=== PATIENT | female | born 1980 | race Two or more races ===

== ENCOUNTER 2016-10-11 07:50 | Observation (INO) | payer OTHER ==
[2016-10-11] MEDS ORDERED: TERBUTALINE SULFATE 1 MG/ML VIAL IV ONE (07:57)
[2016-10-11 08:35] LABS: % IMMATURE GRANULYOCYTES 1.2 % (0.0-1.1); ABSOLUTE IMMATURE GRANULOCYTES 0.08 10^3/uL (0.00-0.10); ADD DIFF? NO; ADD MORPH? NO; ADD SCAN? NO; ATYPICAL LYMPHOCYTE FLAG 10 (0-99); FRAGMENT RBC FLAG 0 (0-99); HEMATOCRIT 38.5 % (38.0-47.0); HEMOGLOBIN 13.9 g/dL (12.6-16.3); LEFT SHIFT FLG 0 (0-99); LIPEMIA HEMOLYSIS FLAG 90 (0-99); MEAN CELL HEMOGLOBIN 33.4 pg (27.9-34.1); MEAN CELL HEMOGLOBIN CONCENTR. 36.1 g/dL (32.4-36.7); MEAN CELL VOLUME 92.5 fL (81.5-99.8); MEAN PLATELET VOLUME 10.6 fL (8.7-11.7); PLATELET CLUMPS FLAG 0 (0-99); PLATELET COUNT 184 10^3/uL (150-400); RED BLOOD CELL COUNT 4.16 10^6/uL (4.18-5.33)
[2016-10-11 09:31] VITALS: BP 129/80; PULSE 83
--- NOTE | 2016-10-11 09:40 | GHP ---
[f rep st] PREOP HISTORY AND PHYSICAL DATE OF ADMISSION: 10/11/2016 ADMISSION DIAGNOSES: 1. Intrauterine at 37-4/7 weeks' gestation. 2. Breech presentation. Patient presents for external cephalic version. INDICATIONS: Patient is a 36-year-old 4, para 3-0-0-3, whose baby is known to be in the sergio ch presentation. She has been doing acupuncture, chiropractic, moxibustion for the last few weeks an d baby is still in a breech presentation. Options were reviewed with the patient. The external ceph alic version versus expectant management and section at 39 weeks. The patient is electing t o proceed with an external cephalic version. Risks and benefits of this have been extensively review ed with the patient including risks of bleeding, rupture of membranes, distress, and need for a n emergency section. The patient has been properly consented. MEDICAL HISTORY: She has exercise-induced asthma. She has GERD, history of depression in college. S he was on medication for a year, but did not have any issues with her mood. Has breast fi broadenoma, and history of pyelonephritis. MEDICATIONS: vitamins and DHA. SURGICAL HISTORY: [place] tooth extraction, breast biopsy. ALLERGIES: No known drug allergies. SOCIAL HISTORY: Patient is . She is a professor. She lives with her and her 3 other children. FAMILY MEDICAL HISTORY: Noncontributory. WORKGROUP LEADER HISTORY: Menarche age 10. Periods every 28 days, lasting 7 days. She is a 4, para 3 -0-0-3. In 08/2008 she had a spontaneous vaginal delivery after 4-1/2 hours of labor at 39 weeks of a 7 pounds 14 ounce male infant. In 01/2011 she had a spontaneous vaginal delivery after 5 hours of labor at 41 weeks of a 7 pounds 11 ounce male . In 08/2013 she had a spontaneous vaginal deliv matt of a 7 pounds 15 ounce female at 40 weeks' gestation. That labor was precipitous. Curren t has been uncomplicated with exception of the breech presentation. The patient denies any history of any abnormal Pap smears or sexually transmitted diseases. PHYSICAL EXAM: VITAL SIGNS: Stable. GENERAL APPEARANCE: Alert and oriented x3. Her heart rate is regular. LUNGS: Clear to auscultation bilaterally. ABDOMEN: Gravid with the 's vertex in th e upper abdomen. It is nontender. EXTREMITIES: Reveal no calf tenderness or edema. RECTAL: The p atient does have a hemorrhoid which started bleeding yesterday. It is thrombosed and it is not overl y painful. CERVICAL EXAM: Deferred. heart tracing is category 1. LABS: Blood type B positive, antibody screen negative. Rubella immune. GBS is negative. HBsAg negative. HIV negative. Her 50 g glucose was 57. ASSESSMENT AND PLAN: A 36-year-old 4, para 3-0-0-3, at 37-4/7 weeks' gestation with an infan t in the breech presentation. Amniotic fluid maximum vertical pocket was 3.4 cm. The placenta is on the patient's right lateral side. We had a long discussion about management options. The patient i s electing to proceed with external cephalic version. Risks and benefits have been extensively revie wed with the patient as well as discharge precautions if version works and does not work. Questions were answered. /[id number]/MODL
--- NOTE | 2016-10-17 17:33 | GPN ---
[f rep st] PROCEDURE NOTE DATE OF PROCEDURE: 10/11/2016 PROCEDURE: Attempted external cephalic version. ANESTHESIA: None. PROVIDERS: Mabel Brown and Davida Strong. INDICATION: Patient is a 36-year-old, 4, para 3-0-0-3, who presented at 37-4/7 weeks' gestat ion with baby known to be in the breech presentation. DESCRIPTION OF PROCEDURE: Patient was brought. She had an IV started. We attempted an external cep halic version without terbutaline per the patient's request and then later on with terbutaline. Feta l status was category 1 tracing prior to the procedure. A bedside ultrasound confirmed baby to be in the breech presentation with adequate amniotic fluid. We attempted multiple forward and backward ro lls with the head rotating from right to left side, but no successful complete version was able to be completed. The baby was monitored intermittently throughout the procedure and for an hour after the procedure. status remained reassuring. Patient was discharged to home. She was given labor precautions and kick counts, and instructed to f ollow up next week in the office and let us know as soon as possible if she proceeds into labor due t o her history of rapid labor. She is aware that she will need to have a section at 39 weeks if she has not delivered before then. We discussed the risk of a vaginal breech delivery. She will present to the office next week for amniotic fluid index checks. /[id number]/MODL
--- NOTE | 2016-11-07 11:56 | GHP ---
DATE OF ADMISSION: 10/11/2016 HISTORY AND PHYSICAL EXAMINATION/DISCHARGE ORDER. The patient was admitted on October 11. Admission for external cephalic version. Let this also serve as a discharge order on October 11. /[id number]/MODL
== END 2016-10-11 11:15 | disposition home or self-care (01) ==
LOC: FLD 07:50
PROVIDERS: ADMIT Obstetrics & Gynecology; ATTEND Obstetrics & Gynecology
DX: O32.1XX1 Maternal care for breech presentation, fetus 1 (principal)
CPT/HCPCS: J3105

== ENCOUNTER 2016-10-21 03:01 | Inpatient (IN) | payer OTHER ==
[2016-10-21] MEDS ORDERED: ceFAZolin 2 GM/DEXTROSE 100 ML IV ONE (03:05)
[2016-10-21] MEDS ORDERED: LR 500 ML IV ONE (03:05)
[2016-10-21] MEDS ORDERED: AMMONIA AROMATIC 1 EACH AMP IH ONE (03:15)
[2016-10-21] MEDS ORDERED: OXYTOCIN 10 UNIT/ML VIAL ONE (03:16)
[2016-10-21] MEDS ORDERED: MISOPROSTOL 200 MCG TAB ONE (03:16)
[2016-10-21] MEDS ORDERED: TERBUTALINE SULFATE 1 MG/ML VIAL ONE (03:16)
[2016-10-21 03:28] LABS: % IMMATURE GRANULYOCYTES 0.8 % (0.0-1.1); ABSOLUTE IMMATURE GRANULOCYTES 0.06 10^3/uL (0.00-0.10); ADD DIFF? NO; ADD MORPH? NO; ADD SCAN? NO; ATYPICAL LYMPHOCYTE FLAG 10 (0-99); FRAGMENT RBC FLAG 0 (0-99); HEMATOCRIT 43.1 % (38.0-47.0); HEMOGLOBIN 14.8 g/dL (12.6-16.3); LEFT SHIFT FLG 0 (0-99); LIPEMIA HEMOLYSIS FLAG 90 (0-99); MEAN CELL HEMOGLOBIN 32.7 pg (27.9-34.1); MEAN CELL HEMOGLOBIN CONCENTR. 34.3 g/dL (32.4-36.7); MEAN CELL VOLUME 95.4 fL (81.5-99.8); MEAN PLATELET VOLUME 10.8 fL (8.7-11.7); PLATELET CLUMPS FLAG 0 (0-99); PLATELET COUNT 197 10^3/uL (150-400); RED BLOOD CELL COUNT 4.52 10^6/uL (4.18-5.33); RED CELL DISTRIBUTION WIDTH 12.7 % (11.5-15.2)
[2016-10-21] MEDS ORDERED: LR 1,000 ML IV SCH (03:30)
[2016-10-21] MEDS ORDERED: CITRIC ACID/SODIUM CITRATE 30 ML UDCUP ONE (03:30)
[2016-10-21] MEDS: CITRIC ACID/SODIUM CITRATE 30 ML UDCUP PO SCH ×2 (03:57→12:38)
[2016-10-21] MEDS ORDERED: FAMOTIDINE 20 MG/NACL/50 ML BAG IV ONE (04:08)
[2016-10-21] MEDS ORDERED: PHENYLEPHRINE HCL 100 MCG/ML SYR ONE ×2 (04:12→05:28)
[2016-10-21] MEDS ORDERED: fentaNYL 100 MCG/2 ML INJ ONE (04:13)
[2016-10-21] MEDS ORDERED: morphINE PF 5 MG/10 ML INJ ONE (04:13)
--- NOTE | 2016-10-21 04:20 | GHP ---
[f rep st] PREOP HISTORY AND PHYSICAL DATE OF ADMISSION: 10/21/2016 ADDENDUM TO HISTORY OF PRESENT ILLNESS: This is an interim H and P from the previous H and P dictate d on 10/11/2016. In review, the patient is a 36-year-old, , with the baby at 39 weeks' gestatio n with a known breech presentation that was confirmed again this morning by ultrasound. The patient had a failed attempt at external version on October 11. The patient had spontaneous rupture of membr anes this morning at 2:30 a.m. with clear fluid. The patient presented to the hospital quickly there after as the patient has a history of rapid deliveries. The patient is being prepared now for surger y. Risks and benefits of the section have been discussed with the patient and the consent f orm signed. The patient was offered a tubal ligation and does not want to proceed with that as they are not totally sure about their family size. For additional history, see the previous dictated H an d P. SIGNIFICANT MEDICAL HISTORY: Only mild asthma with a history of depression in college but no postpar helio depression. PAST SURGICAL HISTORY: The patient has no significant past surgical history. CURRENT MEDICATIONS: Only vitamins and DHA. ALLERGIES: No known drug allergies. PHYSICAL EXAMINATION: GENERAL: Upon admission, the patient is a well developed, well nourished [place] female, in no distress. The patient is aware of contractions with increasing intensity. VITAL SIGNS: Normal and the patient is afebrile. See nursing notes for full documentation. heart tones show a category 1 tracing with baseline in the 130s with good variability and accelerati ons. No decelerations noted. Contractions now occurring every 3-5 minutes. PELVIC: Other than noti ng abundant clear fluid vaginally, a vaginal exam was not performed. EXTREMITIES: Nontender. ASSESSMENT: Intrauterine at 39 weeks' gestation with spontaneous rupture of membranes and the baby in a persistent breech presentation. Maternal blood type B positive with rubella immune, an d beta strep culture negative. PLAN: We will proceed with section for delivery. The patient declines tubal ligation. Con sent form is signed. The patient received preoperative antibiotics and will have on SCDs for DVT pro phylaxis during surgery. /[id number]/MODL
[2016-10-21] MEDS ORDERED: ONDANSETRON 4 MG/2 ML VIAL ONE (05:00)
[2016-10-21] MEDS ORDERED: LIDOCAINE 1% 30 ML SDV SC PRN (05:36)
[2016-10-21] MEDS ORDERED: EPSOM SALT 454 GM TP PRN (05:36)
[2016-10-21] MEDS ORDERED: TERBUTALINE SULFATE 1 MG/ML VIAL IV PRN (05:36)
[2016-10-21] MEDS ORDERED: OXYTOCIN/RINGERS LACTATE 1,000 ML IV PRN (05:36)
[2016-10-21] MEDS ORDERED: MINERAL OIL 60 ML OIL TP PRN (05:36)
[2016-10-21] MEDS ORDERED: LR 1,000 ML IV PRN (05:36)
[2016-10-21] MEDS ORDERED: HYDROCODONE/APAP 5/325 TAB PO PRN (05:52)
[2016-10-21] MEDS ORDERED: SIMETHICONE 80 MG TAB CHEW PO PRN (05:52)
[2016-10-21] MEDS ORDERED: ACETAMINOPHEN 325 MG TAB PO PRN (05:52)
[2016-10-21] MEDS ORDERED: POLYETHYLENE GLYCOL 3350 17 GM PKT PO PRN (05:53)
[2016-10-21] MEDS ORDERED: BISACODYL 10 MG SUPP PR PRN (05:53)
[2016-10-21] MEDS ORDERED: MAGNESIUM HYDROXIDE 30 ML UDCUP PO PRN (05:53)
[2016-10-21] MEDS ORDERED: LACTULOSE 20 GM/30 ML UDCUP PO PRN (05:53)
[2016-10-21] MEDS ORDERED: OXYCODONE/APAP 5/325 TAB PO PRN (05:57)
[2016-10-21] MEDS ORDERED: fentaNYL 100 MCG/2 ML INJ IVP PRN (05:57)
[2016-10-21] MEDS ORDERED: MEPERIDINE 25 MG/ML SYR IVP PRN (05:57)
[2016-10-21] MEDS ORDERED: PHENYLEPHRINE HCL 100 MCG/ML SYR IVP PRN (05:57)
[2016-10-21] MEDS ORDERED: HYDROmorphONE/DILAUDID 1 MG/ML SYR IVP PRN (05:57)
[2016-10-21] MEDS ORDERED: LABETALOL HCL 5 MG/ML 20 ML MDV IVP PRN (05:57)
[2016-10-21] MEDS ORDERED: NALOXONE HCL 0.4 MG/ML INJ IVP PRN (05:57)
--- NOTE | 2016-10-21 05:58 | OBPROC ---
- Delivery Pre-op Diagnoses: IUP at 39 wks, breech, SROM Post-op Diagnoses: same, delivered Procedure: Primary, Low Transverse Surgeon: Jenna Saucedo Doctor Of Dental Medicine: Harriet Herrera () Anesthesiologist: Uziel Angeles Fountain Brush Assembler/RIGGER SUPERVISOR: Mia Louie (RIGGER SUPERVISOR) Anesthesia: Spinal (with duramorph) Complications: Other (Specify) (breech presentation) Findings: normal uterus, tubes and ovaries. normal umb cord, clear fluid. vigorous at . heavier bleeding from right angle of incision but double layer closure and hemostatic IV Fluid (ml): 1,900 EBL: 1000 - [place] Info A Delivery Date: 10/21/16 Delivery Time: 04:53 Sex of : Female Score (1 Min): 8 Score (5 Min): 9
[2016-10-21] MEDS: KETOROLAC 30 MG/1 ML SDV IVP SCH ×2 (12:02→20:11)
--- NOTE | 2016-10-21 12:07 | SOAPPROG ---
SOAP Progress Note Assessment/Plan: Assessment: scant rubra lochia well pain well managed incision covered clean and dry travis in place peeing QS 0 BS eating regular food doing well denies difficulties discussed pain relief moving changing positions taking torodol to assist with pain relief \ Plan:day of surgery 10/21/16 12:05 Subjective: doing well denies pain. Objective: Vital Signs Temp Pulse Resp BP Pulse Ox 36.6 C 65 16 101/63 95 10/21/16 11:00 10/21/16 11:00 10/21/16 11:00 10/21/16 11:00 10/21/16 11:00 Laboratory Results 10/21/16 03:20 - Time Spent With Patient Time Spent With Patient: 15 minutes ICD10 Worksheet Patient Problems: Problems Problem Status Diagnosed Breech presentation Acute delivery delivered Acute
[2016-10-21] MEDS: SENNOSIDES/DOCUSATE SODIUM TAB PO SCH (12:22)
[2016-10-22] MEDS: SENNOSIDES/DOCUSATE SODIUM TAB PO SCH ×3 (02:24→21:09)
[2016-10-22] MEDS: KETOROLAC 30 MG/1 ML SDV IVP SCH ×2 (02:25→02:48)
[2016-10-22] MEDS ORDERED: KETOROLAC 30 MG/1 ML SDV IVP ONE (02:30)
--- NOTE | 2016-10-22 08:03 | OBPROG ---
OBG Progress Note Assessment/Plan: Assessment: s/p primary LTCS secondary to breech POD # 1 - pt is stable Plan: Continue routine post-op Encourage ambulation and IS Start po meds as ordered Advance diet Plan for d/c home in 24-48 hrs 10/22/16 08:00 Subjective: Pt seen and examined. Doing well, no complaints. Pain is well controlled. She is OOB, tere clears, voided once, no flatus. Denies any f/c/n/v/CP or SOB. going well. Minimal lochia. Objective: 10/21/16 03:20 Patient ABO/Rh B POSITIVE 10/21/16 03:20 Temp Pulse Resp BP Pulse Ox 36.1 C 67 18 94/61 L 97 10/22/16 02:42 10/22/16 06:06 10/22/16 02:42 10/22/16 02:42 10/22/16 06:06 Uterine Position/Fundal Height: Umbilicus -1 Uterine Tone: Firm - Physical Exam General Appearance: WD/WN, alert, no apparent distress Respiratory: lungs clear, normal breath sounds Cardiac/Chest: regular rate, rhythm Abdomen: normal bowel sounds, soft, flatus (not yet), incision (C/D/I with steri strips), other (appropriate tenderness) Genitourinary: lochia (minimal) Extremities: non-tender, normal inspection Neuro/Psych: alert, normal mood/affect, oriented x 3 ICD10 Worksheet Patient Problems: Problems Problem Status Diagnosed Breech presentation Acute delivery delivered Acute
[2016-10-22] MEDS: IBUPROFEN 600 MG TAB PO PRN ×3 (08:54→21:10)
[2016-10-23] MEDS: IBUPROFEN 600 MG TAB PO PRN ×2 (03:08→10:22)
[2016-10-23 08:20] VITALS: BP 117/77; PULSE 80; RESP 18; TEMP 98.4; O2SAT 96
--- NOTE | 2016-10-23 08:28 | SOAPPROG ---
SOAP Progress Note Assessment/Plan: Assessment: POD 2 s/p primary C/S for breech, SROM Plan: Doing great, desires D/c 10/23/16 08:26 Subjective: Pt doing well. Managing pain with mainly ibuprofen. Bld is light. urinating fine. Baby is latching well. Amb well and reg diet. Objective: Vital Signs Temp Pulse Resp BP Pulse Ox 36.9 C 80 18 117/77 96 10/23/16 08:00 10/23/16 08:00 10/23/16 08:00 10/23/16 08:00 10/23/16 08:00 Laboratory Results 10/21/16 03:20 10/22/16 10/23/16 10/24/16 05:59 05:59 05:59 Intake Total 600 Output Total 3850 600 Balance -3250 -600 Physical Exam - Physical Exam General Appearance: WD/WN Abdomen: non-tender (approp post op tenderness), soft, other (incision CDI, FF at umb -1) Pelvic Exam: vaginal bleeding (normal lochia) Extremities: non-tender, pedal edema (mild) Neuro/Psych: normal mood/affect ICD10 Worksheet Patient Problems: Problems Problem Status Diagnosed Breech presentation Acute delivery delivered Acute
[2016-10-23] MEDS: SENNOSIDES/DOCUSATE SODIUM TAB PO SCH (10:22)
== END 2016-10-23 12:40 | disposition home or self-care (01) | DRG 766 ==
LOC: FLD 03:01 → FOB 09:00
PROVIDERS: ADMIT Obstetrics & Gynecology; ATTEND Obstetrics & Gynecology
PROC: 10D00Z1 Extraction of Products of Conception, Low, Open Approach (ICD-10-PCS; principal; 2016-10-21)
DX: O32.1XX0 Maternal care for breech presentation, not applicable or unspecified (principal); Z37.0 Single live birth; Z3A.39 39 weeks gestation of pregnancy; O09.523 Supervision of elderly multigravida, third trimester
CPT/HCPCS: J0690; J1885; J2274; J2370; J2405; J3010; J3105